=== PATIENT | male | born 1990 | race American Indian/Alaskan Native ===

== ENCOUNTER 2022-01-14 10:03 | Emergency (ER) | payer SELFPAY ==
[2022-01-14 10:13] VITALS: BP 135/88
--- NOTE | 2022-01-14 10:34 | XRay Report ---
CHEST 2 VIEWS INDICATION / CLINICAL INFORMATION: Chest Pain. COMPARISON: None available. FINDINGS: SUPPORT DEVICES: None. HEART / MEDIASTINUM: No significant abnormality. LUNGS / PLEURA: No significant pulmonary or pleural abnormality. No pneumothorax. ADDITIONAL FINDINGS: No significant additional findings. IMPRESSION: 1. No acute findings. Signer Name: Dann De La Paz MD Signed: 01/14/2022 10:30 AM Workstation Name: [employer]
[2022-01-14 11:33] LABS: Hematocrit 41.5 % (35.5-45.6); Hemoglobin 13.4 gm/dl (11.8-15.2); Mean Corpuscular HGB Conc 32 % (32-34); Mean Corpuscular Volume 96 fl (84-94); Platelet Count 230 K/mm3 (140-440); Red Blood Count 4.32 M/mm3 (3.65-5.03); Red Cell Distribution Width 12.5 % (13.2-15.2)
[2022-01-14 11:52] LABS: Alanine Aminotransferase 10 units/L (7-56); Albumin 4.5 g/dL (3.9-5); BUN/Creatinine Ratio 11; Blood Urea Nitrogen 11 mg/dL (9-20); Calcium 9.3 mg/dL (8.4-10.2); Hemolysis Index 10
[2022-01-14 12:27] LABS: Total Cells Counted 100
[2022-01-14 12:28] LABS: Large Platelets Few; Platelet Estimate Consistent w Auto; RBC Morphology Normal; Smudge Cells Few
[2022-01-14] MEDS ORDERED: IBUPROFEN 800 MG TAB PO ONE (14:16)
--- NOTE | 2022-01-14 15:17 | Emergency Department Report ---
ED Chest Pain HPI - General Chief Complaint: Chest Pain Stated Complaint: CHEST PAIN Time Seen by Provider: 01/14/22 13:54 Source: patient Mode of arrival: Ambulatory Limitations: No Limitations - History of Present Illness Initial Comments: 31-year-old male with no significant past medical history presents to the hospital complaining of chest pain times several years. Pain is across the upper portion of his chest and constant. Pain worsens with palpation to pectoralis muscle and with extending arms overhead. He also complains of pain with inspiration. Pain over as moderate became more severe today and exacerbated by movement. Patient is not taking any pain medication because patient states he has been seen by several doctors over the years without a specific diagnosis. Denies recent trauma or exercising. He denies shortness of breath, nausea, vomiting, diaphoresis, calf tenderness, or leg edema. He is a non-smoker. Denies drug use specifically cocaine. Denies family history of CAD or personal history of PE/DVT Severity scale (0 -10): 7 - Related Data Previous Rx's Medication Instructions Recorded Last Taken Type Ibuprofen [Motrin] 800 mg PO Q8HR PRN #60 tablet 01/14/22 Unknown Rx Allergies Allergy/AdvReac Type Severity Reaction Status Date / Time No Known Allergies Allergy Verified 01/14/22 10:11 Heart Score - HEART Score History: Slightly suspicious EKG: Non-specific Age: < 45 Risk factors: No known risk factors Troponin: < normal limit (Not performed) HEART Score: 1 - EKG Read Time Time EKG Completed: 10:14 EKG Read Time: 10:33 ED Review of Systems ROS: Stated complaint: CHEST PAIN Other details as noted in HPI Comment: All other systems reviewed and negative ED Past Medical Hx - Past Medical History Previous Medical History?: No - Medications Home Medications: Home Medications Medication Instructions Recorded Confirmed Last Taken Type Ibuprofen [Motrin] 800 mg PO Q8HR PRN #60 tablet 01/14/22 Unknown Rx ED Physical Exam - General Limitations: No Limitations - Other Other exam information: General: No acute distress Head: Atraumatic Eyes: normal appearance ENT: Moist mucous membranes Neck: Normal appearance, no midline tenderness Chest: Clear to auscultation bilaterally, reproducible pectoralis muscle tenderness to palpation CV: Regular rate and rhythm Abdomen: Soft, normal bowel sounds, nontender, nondistended, no rebound or guarding Back: Normal inspection Extremity: Normal inspection, full range of motion, no calf tenderness or leg e dee Neuro: Alert O x 3, no facial asymmetry, speech clear, no gross motor sensory deficit Psych: Appropriate behavior Skin: No rash ED Course Vital Signs 01/14/22 01/14/22 10:11 14:19 Temperature 97.9 F Pulse Rate 48 L Respiratory 18 Rate Blood Pressure 135/88 O2 Sat by Pulse 100 98 Oximetry ILDEFONSO score - Ildefonso Score Age > 65: (0) No Aspirin use within the Past 7 Days: (0) No 3 or more CAD Risk Factors: (0) No 2 or more Angina events in past 24 hrs: (0) No Known CAD with more than 50% Stenosis: (0) No Elevated Cardiac Markers: (0) No ED Medical Decision Making - Lab Data Result diagrams: 01/14/22 10:46 01/14/22 10:46 Lab Results 01/14/22 01/14/22 Range/Units 10:46 10:46 WBC 6.1 (4.5-11.0) K/mm3 RBC 4.32 (3.65-5.03) M/mm3 Hgb 13.4 (11.8-15.2) gm/dl Hct 41.5 (35.5-45.6) % MCV 96 H (84-94) fl MCH 31 (28-32) pg MCHC 32 (32-34) % RDW 12.5 L (13.2-15.2) % Plt Count 230 (140-440) K/mm3 Add Manual Diff Complete Total Counted 100 Seg Neuts % (Manual) 49.0 (40.0-70.0) % Band Neutrophils % 0 % Lymphocytes % (Manual) 42.0 H (13.4-35.0) % Reactive Lymphs % (Man) 0 % Monocytes % (Manual) 6.0 (0.0-7.3) % Eosinophils % (Manual) 1.0 (0.0-4.3) % Basophils % (Manual) 2.0 H (0.0-1.8) % Metamyelocytes % 0 % Myelocytes % 0 % Promyelocytes % 0 % Blast Cells % 0 % Nucleated RBC % Not Reportable Seg Neutrophils # Man 3.0 (1.8-7.7) K/mm3 Band Neutrophils # 0.0 K/mm3 Lymphocytes # (Manual) 2.6 (1.2-5.4) K/mm3 Abs React Lymphs (Man) 0.0 K/mm3 Monocytes # (Manual) 0.4 (0.0-0.8) K/mm3 Eosinophils # (Manual) 0.1 (0.0-0.4) K/mm3 Basophils # (Manual) 0.1 (0.0-0.1) K/mm3 Metamyelocytes # 0.0 K/mm3 Myelocytes # 0.0 K/mm3 Promyelocytes # 0.0 K/mm3 Blast Cells # 0.0 K/mm3 WBC Morphology Not Reportable Hypersegmented Neuts Not Reportable Hyposegmented Neuts Not Reportable Hypogranular Neuts Not Reportable Smudge Cells Few Toxic Granulation Not Reportable Toxic Vacuolation Not Reportable Dohle Bodies Not Reportable Pelger-Huet Anomaly Not Reportable Teresa Rods Not Reportable Platelet Estimate Consistent w auto Clumped Platelets Not Reportable Plt Clumps, EDTA Not Reportable Large Platelets Few Giant Platelets Not Reportable Platelet Satelliting Not Reportable Plt Morphology Comment Not Reportable RBC Morphology Normal Dimorphic RBCs Not Reportable Polychromasia Not Reportable Hypochromasia Not Reportable Poikilocytosis Not Reportable Anisocytosis Not Reportable Microcytosis Not Reportable Macrocytosis Not Reportable Spherocytes Not Reportable Pappenheimer Bodies Not Reportable Sickle Cells Not Reportable Target Cells Not Reportable Tear Drop Cells Not Reportable Ovalocytes Not Reportable Helmet Cells Not Reportable [place] Bodies Not Reportable Nardin Rings Not Reportable Ivanna Cells Not Reportable Bite Cells Not Reportable Crenated Cell Not Reportable Elliptocytes Not Reportable Acanthocytes (Spur) Not Reportable Rouleaux Not Reportable Hemoglobin C Crystals Not Reportable Schistocytes Not Reportable Malaria parasites Not Reportable Bryan Bodies Not Reportable Hem Pathologist Commnt No Sodium 142 (137-145) mmol/L Potassium 4.4 (3.6-5.0) mmol/L Chloride 105.1 (98-107) mmol/L Carbon Dioxide 27 (22-30) mmol/L Anion Gap 14 mmol/L BUN 11 (9-20) mg/dL Creatinine 1.0 (0.8-1.3) mg/dL Estimated GFR > 60 ml/min BUN/Creatinine Ratio 11 % Glucose 93 (75-100) mg/dL Calcium 9.3 (8.4-10.2) mg/dL Total Bilirubin 0.50 (0.1-1.2) mg/dL AST 14 (5-40) units/L ALT 10 (7-56) units/L Alkaline Phosphatase 54 (35-129) units/L Total Protein 6.9 (6.3-8.2) g/dL Albumin 4.5 (3.9-5) g/dL Albumin/Globulin Ratio 1.9 % - EKG Data -: EKG Interpreted by Me EKG shows normal: sinus rhythm, ST-T waves (Early repolarization) Rate: normal, bradycardia (7) - Radiology Data Radiology results: report reviewed (Chest x-ray: No acute) - Medical Decision Making 31-year-old male without any cardiac risk factors presents to the hospital with ongoing musculoskeletal reproducible chest wall pain for several years. Patient denies associated symptoms. Pain is reproducible on examination with arm movement. Patient has refused to take anti-inflammatories or other medication because he "does not like taking medications". Patient has a heart score of 1 although troponin not performed due to low cardiac risk based on history and physical examination. Patient also has a PERC score of 0. Motrin 800 mg p rovided in the hospital. Patient encouraged to take anti-inflammatories and follow-up with a primary care doctor for reassessment and further evaluation. Patient encouraged to return if symptoms worsen Critical Care Time: No Critical care attestation.: If time is entered above; I have spent that time in minutes in the direct care of this critically ill patient, excluding procedure time. ED Disposition Clinical Impression: Chest wall pain Disposition: 01 HOME / SELF CARE / HOMELESS Is pt being admited?: No Condition: Stable Instructions: Chest Wall Pain, [id number] Additional Instructions: Take Motrin as needed for pain. follow-up with your doctor or doctor/clinic pr ovided. Return if symptoms worsen as indicated by your discharge instructions. Prescriptions: Ibuprofen [Motrin] 800 mg PO Q8HR PRN #60 tablet PRN Reason: Pain , Severe (7-10) Referrals: SHANELL CABRERA MD [Staff Physician] - 3-5 Days [facility] [Provider Group] - 3-5 Days Time of Disposition: 15:19
--- NOTE | 2022-01-15 09:41 | Electrocardiograph Report ---
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
== END 2022-01-14 16:20 | disposition home or self-care (01) ==
LOC: ED 10:03
DX: R07.9 Chest pain, unspecified (principal)
CPT/HCPCS: 36415; 71046; 80053; 85007; 85025; 93005; 99284